=== PATIENT | female | born 1980 | race Caucasian/White ===

== ENCOUNTER 2017-02-25 14:00 | Observation (INO) | payer MEDICAID, SELFPAY ==
[2017-02-25 14:29] VITALS: BMI 22.4
[2017-02-25 14:32] VITALS: BMI 22.5
[2017-02-25 14:39] VITALS: BP 131/87; PULSE 79; RESP 18; TEMP 36.9; O2SAT 100
--- NOTE | 2017-02-25 14:52 | PCM.HP.STD ---
Problem List (1) Opiate withdrawal Status: Acute History of Present Illness Date of Admission: 02/25/17 Chief Complaint: opiate withdrawal The patient is a 36 year old F presents to seek opiate withdrawal. Patient has been injecting IV heroin for about 4 years now. Patient's last use was at 1600 yesterday. Since then, patient has been having abdominal cramps, restless legs, rhinitis, nausea. [] Past Medical History Allergies Latex, Natural Rubber Allergy (Verified 02/25/17 14:37) Shortness of breath Sulfa (Sulfonamide Antibiotics) Allergy (Verified 02/25/17 14:37) Shortness of breath Smoking Status: Heavy Smoker (>10/day) Tobacco Use: Cigarettes Alcohol: None Drugs: Heroin - *Family History Paternal History Items: Diabetes, Heart Disease Review of Systems Constitutional: Reports: Chills. Denies: Fever, Weight Change Eyes: Reports: Blurred vision. Denies: Double vision HEENT: Denies: Head Aches, Sinus Congestion, Sinus Drainage Cardiovascular: Denies: Chest Pain, Palpitations Respiratory: Denies: Cough, Shortness of breath at rest, Sputum production Gastrointestinal: Denies: Abdominal Pain, Nausea, Vomiting Genitourinary: Denies: Dysuria Musculoskeletal: Denies: Joint Pain, Joint Tenderness Skin: Reports: Rash - Chronic rash on the dorsum of the feet bilaterally. It is pruritic. Patient has received medication for it which helps temporarily but just has intense pruritus associated with it. No rash elsewhere that she is aware of.. Denies: Wounds Neurological: Denies: Numbness, Tingling, Focal weakness Hematologic/ Lymphatic: Denies: Easy Bruising, Easy Bleeding, Hx of blood clot VTE Information - Inpt Only VTE Present on Admission: No Patient Problems: Active and Suspected Problems Opiate withdrawal (Acute) - Physical Exam General: Alert, Cooperative, No apparent distress HEENT: Atraumatic, Normocephalic, - - No scleral icterus Neck: No Nodes, Thyroid Normal Size and Texture Lungs: Clear to auscultation, Normal air movement, No rhonchi, No wheeze Cardiovascular: Regular rate, Regular Rhythm, Normal S1, Normal S2, No murmurs Abdomen: Bowel Sounds Present, Soft, Non Tender, Non-Distended, No Hepato-splenomegaly Extremities: No clubbing, No cyanosis, No edema, No Calf Tenderness Skin: - - Excoriations on the dorsum of her feet bilaterally. This appears to have a plaque on the medial ankle on her right. No other plaques noted elsewhere. Musculoskeletal: No Tenderness to Palpation of Joints or Extremities, No Muscle Wasting Psych/Mental Status: Normal Affect, Appropriate Vital Signs Temp Pulse Resp BP Pulse Ox 36.9 C 79 18 131/87 100 02/25/17 14:39 02/25/17 14:39 02/25/17 14:39 02/25/17 14:39 02/25/17 14:39 Oxygen Delivery Method Room Air Weight: 61.235 kg Body Mass Index (BMI) 22.4 Assessment/Plan Active and Suspected Problems Opiate withdrawal (Acute) 1. Acute heroin withdrawal Patient will be on the medical stabilization protocol for opiates. Patient also have other medications to help with other somatic complaints. Patient states she does share needles and reuses needles though she uses bleach to clean those out. Will check the patient for HIV and hep C antibodies. 2. Rash: Relatively localized on her feet bilaterally. I am frankly unsure what it is and could be psoriasis though she does not have lesions elsewhere. Other possibilities could be porphyria but suspected that be more localized in the hands and patient states that she has no issues with the son making worse but states it does get worse when she is in the grass.
--- NOTE | 2017-02-25 14:57 | HP.PCM_ITS ---
Problem List (1) Opiate withdrawal Status: Acute History of Present Illness Date of Admission: 02/25/17 Chief Complaint: opiate withdrawal The patient is a 36 year old F presents to seek opiate withdrawal. Patient has been injecting IV heroin for about 4 years now. Patient's last use was at 1600 yesterday. Since then, patient has been having abdominal cramps, restless legs , rhinitis, nausea. [] Past Medical History Allergies Latex, Natural Rubber Allergy (Verified 02/25/17 14:37) Shortness of breath Sulfa (Sulfonamide Antibiotics) Allergy (Verified 02/25/17 14:37) Shortness of breath Smoking Status: Heavy Smoker (>10/day) Tobacco Use: Cigarettes Alcohol: None Drugs: Heroin - *Family History Paternal History Items: Diabetes, Heart Disease Review of Systems Constitutional: Reports: Chills. Denies: Fever, Weight Change Eyes: Reports: Blurred vision. Denies: Double vision HEENT: Denies: Head Aches, Sinus Congestion, Sinus Drainage Cardiovascular: Denies: Chest Pain, Palpitations Respiratory: Denies: Cough, Shortness of breath at rest, Sputum production Gastrointestinal: Denies: Abdominal Pain, Nausea, Vomiting Genitourinary: Denies: Dysuria Musculoskeletal: Denies: Joint Pain, Joint Tenderness Skin: Reports: Rash - Chronic rash on the dorsum of the feet bilaterally. It is pruritic. Patient has received medication for it which helps temporarily but just has intense pruritus associated with it. No rash elsewhere that she is aware of.. Denies: Wounds Neurological: Denies: Numbness, Tingling, Focal weakness Hematologic/ Lymphatic: Denies: Easy Bruising, Easy Bleeding, Hx of blood clot VTE Information - Inpt Only VTE Present on Admission: No Patient Problems: Active and Suspected Problems Opiate withdrawal (Acute) - Physical Exam General: Alert, Cooperative, No apparent distress HEENT: Atraumatic, Normocephalic, - - No scleral icterus Neck: No Nodes, Thyroid Normal Size and Texture Lungs: Clear to auscultation, Normal air movement, No rhonchi, No wheeze Cardiovascular: Regular rate, Regular Rhythm, Normal S1, Normal S2, No murmurs Abdomen: Bowel Sounds Present, Soft, Non Tender, Non-Distended, No Hepato- splenomegaly Extremities: No clubbing, No cyanosis, No edema, No Calf Tenderness Skin: - - Excoriations on the dorsum of her feet bilaterally. This appears to have a plaque on the medial ankle on her right. No other plaques noted elsewhere. Musculoskeletal: No Tenderness to Palpation of Joints or Extremities, No Muscle Wasting Psych/Mental Status: Normal Affect, Appropriate Vital Signs Temp Pulse Resp BP Pulse Ox 36.9 C 79 18 131/87 100 02/25/17 14:39 02/25/17 14:39 02/25/17 14:39 02/25/17 14:39 02/25/17 14:39 Oxygen Delivery Method Room Air Weight: 61.235 kg Body Mass Index (BMI) 22.4 Assessment/Plan Active and Suspected Problems Opiate withdrawal (Acute) 1. Acute heroin withdrawal * Patient will be on the medical stabilization protocol for opiates. Patient also have other medications to help with other somatic complaints. * Patient states she does share needles and reuses needles though she uses bleach to clean those out. * Will check the patient for HIV and hep C antibodies. 2. Rash: * Relatively localized on her feet bilaterally. I am frankly unsure what it is and could be psoriasis though she does not have lesions elsewhere. * Other possibilities could be porphyria but suspected that be more localized in the hands and patient states that she has no issues with the son making worse but states it does get worse when she is in the grass.
[2017-02-25] MEDS: cloNIDine HCl 0.1 MG Tablet 0.2 MG PO (15:24)
[2017-02-25] MEDS: Buprenorphine HCl 2 MG TAB.SUBL SL ×2 (15:25→22:57)
[2017-02-25 15:26] LABS: Absolute Lymphocyte Count 3.06 X10^3/ul (0.83-4.51); Absolute Neutrophil Count 6.2 X10^3/uL (2.0-7.7); Basophil# 0.07 X10^3/uL; Basophil% 0.7 % (0-1); Eosinophil# 0.11 X10^3/uL; Eosinophils% 1.1 % (0-5); Hematocrit 39.8 % (37-47); Hemoglobin 13.5 g/dl (12.0-15.0); Lymphocyte # 3.06 X10^3/ul (4.0); Lymphocyte % 31.3 % (19-41); Mean Corp Hgb Conc 33.9 g/gl (32-36); Mean Corpuscular Hgb 30.1 pg (27.0-32.0); Mean Corpuscular Volume 88.8 fL (81-99); Mean Platelet Vol. 12.1 fl (6.2-12.0); Monocyte# 0.37 X10^3/uL; Monocyte% 3.8 % (0-10); Neutrophil # 6.15 X10^3/uL (2.7-7.7); Neutrophil % 62.9 % (47-70); Platelet Count 261 K/mm3 (150-450); RBC Distribution Width CV 14.5 % (11.6-14.6); Red Blood Count 4.48 M/mm3 (4.2-5.4); White Blood Count 9.8 K/mm3 (4.4-11.0)
[2017-02-25 15:30] LABS: Differential Indicated SCAN CRITERIA MET; POSITIVE COUNT NO; POSITIVE DIFFERENTIAL NO; POSITIVE MORPHOLOGY YES
[2017-02-25 15:39] LABS: ALB/GLOB Ratio 0.9 RATIO (0.9-2.4); AST(SGOT) 9 U/L (15-37); Alanine Aminotransfer ALT/SGPT 16 U/L (12-78); Albumin, Serum 3.6 g/dL (3.4-5.0); Alkaline Phosphatase 81 U/L (45-117); Anion Gap 9 (5-15); BUN 7 mg/dL (7-18); BUN/Creat Ratio 8.9 RATIO (10-20); Chloride 106 mmol/L (98-107); Creatinine, Serum 0.79 mg/dL (0.55-1.02); EST Glomerular Filtration Rate 88 mL/min (>60); Est Glom Filt Rate - Afr Amer 106 mL/min (>60); Estimated Creatinine Clearance 88.59 ml/min; Globulin 4.1 g/dL (2.3-3.5); Glucose 89 mg/dL (70-110); Potassium 3.6 mmol/L (3.5-5.1); Protein, Total 7.7 g/dL (6.4-8.2); Sodium Level 140 mmol/L (136-145)
[2017-02-25 15:48] LABS: Pregnancy, Serum, hCG Quali. NEGATIVE Negative (0-9 Nonpreg)
[2017-02-25 16:19] LABS: Platelet Estimate ADEQUATE (ADEQ); Red Cell Morphology NORM C+C NORMAL (NORM C&C)
[2017-02-25] MEDS: 0.9% Normal Saline 1,000 ML 125 ML IV (16:24)
[2017-02-25 18:39] VITALS: BP 94/55; PULSE 71; RESP 18; TEMP 37.1; O2SAT 98
[2017-02-25] MEDS: Carbidopa/Levodopa 25/100 Tablet PO (18:46)
[2017-02-25] MEDS: Methocarbamol 750 MG Tablet PO (18:46)
[2017-02-25 21:22] VITALS: BP 110/73; PULSE 58; RESP 14; TEMP 36.4
[2017-02-25] MEDS: Ibuprofen 400 MG Tablet 800 MG PO (21:29)
[2017-02-25] MEDS: traZODone 50 MG Tablet PO (22:57)
[2017-02-25 23:46] LABS: Vista UDS pH Range 6
[2017-02-26 00:01] LABS: Amphetamine Urine VISTA NEGATIVE (<1000 ng/mL); Barbiturate Urine VISTA NEGATIVE (< 200 ng/mL); Benzodiazepine Urine VISTA NEGATIVE (< 200 ng/mL); Cocaine Urine VISTA NEGATIVE (< 300 ng/mL); Ecstacy Urine VISTA NEGATIVE (< 500 ng/mL); Methadone Urine VISTA NEGATIVE (< 300 ng/mL); PCP Urine VISTA NEGATIVE (< 25 ng/mL); THC Urine VISTA NEGATIVE (< 50 ng/mL)
[2017-02-26 00:39] VITALS: BP 108/74; PULSE 61; RESP 16; TEMP 36.4
[2017-02-26] MEDS: Methocarbamol 750 MG Tablet PO ×3 (00:42→22:31)
[2017-02-26 05:17] VITALS: BP 104/72; PULSE 60; RESP 14; TEMP 36.4
[2017-02-26] MEDS: Dicyclomine 10 MG Capsule 20 MG PO (05:21)
[2017-02-26] MEDS: Ibuprofen 400 MG Tablet 800 MG PO (05:21)
[2017-02-26] MEDS: Buprenorphine HCl 2 MG TAB.SUBL SL ×3 (06:34→22:30)
[2017-02-26 10:00] VITALS: BP 114/68; PULSE 60; RESP 16; TEMP 36.9
[2017-02-26] MEDS: Multivitamins,Ther W-Minerals Tablet 1 TABLET PO (10:52)
[2017-02-26] MEDS: Carbidopa/Levodopa 25/100 Tablet PO ×2 (11:09→22:31)
[2017-02-26 14:00] VITALS: BP 117/75; PULSE 63; RESP 16; TEMP 36.5; O2SAT 98
--- NOTE | 2017-02-26 16:03 | CHAPLAIN ---
introduction of self and purpose in hospital to patient; pt says that she is really tired and would like me to stop back another time
--- NOTE | 2017-02-26 18:52 | PCM.PROGNOTE ---
Patient Problems: Active and Suspected Problems Opiate withdrawal (Acute) Subjective: Patient seen and examined today, she states she is not having severe withdrawal symptoms at this time. Patient has rash areas on her lower legs and feet which she says has been present for over a year, these areas look to this examiner to be a nonspecific dermatitis. She says the areas itch. I have written for triamcinolone cream for these areas - Physical Exam General: Alert, Oriented x3, Cooperative, No apparent distress, Well developed, Well nourished HEENT: Atraumatic, PERRLA, EOMI, Normocephalic Oral: Moist Mucosa Neck: Supple, No JVD, Negative Carotid Bruits, No Nuchal Rigidity, Trachea Midline, Thyroid Normal Size and Texture Lungs: Clear to auscultation, Normal air movement, No rhonchi, No wheeze, No rales Cardiovascular: Regular rate, Regular Rhythm, Normal S1, Normal S2, No murmurs, No Ectopic Activity, PMI Normal, No rub noted, No Gallop Abdomen: Bowel Sounds Present, Soft, Non Tender, Non-Distended Extremities: No clubbing, No cyanosis, No edema, Capillary Refill Less than 3 Seconds Skin: - - Patient has some scattered superficial reddened skin areas over her lower legs and feet, there is evidence of scratching in the areas, there is no purulent discharge noted. Musculoskeletal: No Tenderness to Palpation of Joints or Extremities Neurological: Cranial nerves II-XII grossly intact, Neuro grossly intact, Sensory exam intact to light touch and pain, Coordination normal Psych/Mental Status: Normal Affect, Appropriate, Alert and oriented to time, place, person, mood and affect Vital Signs Temp Pulse Resp BP Pulse Ox 97.7 F 63 16 117/75 98 02/26/17 14:00 02/26/17 14:00 02/26/17 14:00 02/26/17 14:00 02/26/17 14:00 Oxygen Delivery Method Room Air Weight: 61.235 kg Body Mass Index (BMI) 22.4 Intake and Output for Last 24 Hours 02/24/17 02/25/17 02/26/17 23:59 23:59 23:59 Intake Total 780 1555 Output Total 3 Balance 777 1555 Laboratory Tests Past 24 Hrs 02/25/17 23:21 Urine Opiates Screen NEGATIVE Urine Methadone Screen NEGATIVE Ur Barbiturates Screen NEGATIVE Ur Phencyclidine Scrn NEGATIVE Ur Amphetamines Screen NEGATIVE U Methamphetamin-MDMA NEGATIVE U Benzodiazepines Scrn NEGATIVE Urine Cocaine Screen NEGATIVE U Cannabinoids Screen NEGATIVE Ur Drug Screen Comment Assessment/Plan Active and Suspected Problems Opiate withdrawal (Acute) #1 acute opioid withdrawal-continue medications per medical stabilization protocol #2 atopic dermatitis of the lower legs and feet-patient will be placed on triamcinolone cream twice a day
[2017-02-26 22:24] VITALS: BP 109/75; PULSE 61; RESP 16; TEMP 36.7
[2017-02-26] MEDS: Triamcinolone 0.5% Cream 1 APPLIC TOPICAL (22:30)
[2017-02-26] MEDS: traZODone 50 MG Tablet PO (22:30)
[2017-02-26] MEDS: cloNIDine HCl 0.1 MG Tablet PO (22:30)
[2017-02-27 07:04] VITALS: BP 101/67; PULSE 57; RESP 16; TEMP 36.6
[2017-02-27] MEDS: Buprenorphine HCl 2 MG TAB.SUBL SL ×2 (07:05→18:26)
[2017-02-27 10:00] VITALS: BP 104/63; PULSE 61; RESP 16; TEMP 36.6
[2017-02-27 10:45] LABS: Hep C Antibodies >11.0 s/co ratio (0.0-0.9)
[2017-02-27] MEDS: Triamcinolone 0.5% Cream 1 APPLIC TOPICAL ×2 (10:56→22:30)
[2017-02-27] MEDS: Multivitamins,Ther W-Minerals Tablet 1 TABLET PO (10:56)
[2017-02-27 11:00] VITALS: BP 104/63; PULSE 61; RESP 18; TEMP 36.6; O2SAT 97
[2017-02-27] MEDS: Methocarbamol 750 MG Tablet PO ×3 (11:08→22:25)
[2017-02-27] MEDS: cloNIDine HCl 0.1 MG Tablet PO ×3 (11:09→22:24)
--- NOTE | 2017-02-27 13:03 | PCM.PROGNOTE ---
Patient Problems: Active and Suspected Problems Opiate withdrawal (Acute) Subjective: Patient was seen and examined today, she is doing well and has minimal withdrawal symptoms. - Physical Exam General: Alert, Oriented x3, Cooperative, No apparent distress, Well developed, Well nourished HEENT: Atraumatic, PERRLA, EOMI, Normocephalic Oral: Moist Mucosa Neck: Supple, No Nuchal Rigidity, Trachea Midline, Thyroid Normal Size and Texture Lungs: Clear to auscultation, Normal air movement, No rhonchi, No wheeze, No rales Cardiovascular: Regular rate, Regular Rhythm, Normal S1, Normal S2, No murmurs, No Ectopic Activity, PMI Normal, No rub noted, No Gallop Abdomen: Bowel Sounds Present, Soft, Non Tender, Non-Distended, No hernias noted Extremities: No clubbing, No cyanosis, No edema, Capillary Refill Less than 3 Seconds Musculoskeletal: No Tenderness to Palpation of Joints or Extremities Neurological: Cranial nerves II-XII grossly intact, Neuro grossly intact, Sensory exam intact to light touch and pain, Coordination normal Psych/Mental Status: Normal Affect, Appropriate, Alert and oriented to time, place, person, mood and affect Vital Signs Temp Pulse Resp BP Pulse Ox 97.9 F 61 18 104/63 97 02/27/17 11:00 02/27/17 11:00 02/27/17 11:00 02/27/17 11:00 02/27/17 11:00 Oxygen Delivery Method Room Air Weight: 61.235 kg Body Mass Index (BMI) 22.4 Intake and Output for Last 24 Hours 02/25/17 02/26/17 02/27/17 23:59 23:59 23:59 Intake Total 780 1555 Output Total 3 Balance 777 1555 Laboratory Tests Past 24 Hrs 02/25/17 15:03 Hepatitis C Ab (EIA) >11.0 H Hepatitis C Comment Not Reportable Assessment/Plan Active and Suspected Problems Opiate withdrawal (Acute) #1 acute opioid withdrawal-continue medications per medical stabilization protocol #2 atopic dermatitis of the lower legs and feet-continue triamcinolone cream
--- NOTE | 2017-02-27 15:54 | CHAPLAIN ---
parent is on phone with a personal call; offer to come back another time and pt agrees
[2017-02-27] MEDS: Carbidopa/Levodopa 25/100 Tablet PO (16:51)
[2017-02-27 17:32] VITALS: BP 110/66; PULSE 62; RESP 18; TEMP 36.6
[2017-02-27] MEDS: traZODone 50 MG Tablet PO (22:24)
[2017-02-27 22:32] VITALS: BP 115/72; PULSE 56; RESP 16; TEMP 36.6
[2017-02-28 06:07] VITALS: BP 106/67; PULSE 52; RESP 16; TEMP 36.3
[2017-02-28] MEDS: Buprenorphine HCl 2 MG TAB.SUBL SL (06:07)
--- NOTE | 2017-02-28 09:23 | PCM.DC ---
- Discharge Diagnoses Current Active Problems: Current Active and Chronic Problems Opiate withdrawal (Acute) You will use the following diet at home:: No restrictions Your food should be the consistency of: Regular Your liquids should be the consistency of: Regular/Thin Discharge Activity: Return to Normal Activity Allergies/Adverse Reactions: Allergies Latex, Natural Rubber Allergy (Verified 02/25/17 14:37) Shortness of breath Sulfa (Sulfonamide Antibiotics) Allergy (Verified 02/25/17 14:37) Shortness of breath Medications to take at Discharge Nicotine [Nicoderm Cq] 21 mg TRANSDERM. DAILY #30 patch 02/28/17 Triamcinolone 0.5% Cream [Kenalog] 1 applic TOPICAL BID #15 gm 02/28/17 The following prescriptions were given: Nicotine [Nicoderm Cq] 21 mg TRANSDERM. DAILY #30 patch Triamcinolone 0.5% Cream [Kenalog] 1 applic TOPICAL BID #15 gm Primary Care Physician: Care Physician,No Primary [Primary Care Provider] - Please follow up with your Primary Care Physician in: in 2-3 weeks
[2017-02-28 09:27] VITALS: BP 96/57; PULSE 68; RESP 16; TEMP 36.6
[2017-02-28] MEDS: Methocarbamol 750 MG Tablet PO (09:45)
[2017-02-28] MEDS: Multivitamins,Ther W-Minerals Tablet 1 TABLET PO (09:45)
[2017-02-28] MEDS: Triamcinolone 0.5% Cream 1 APPLIC TOPICAL (09:46)
--- NOTE | 2017-02-28 19:25 | PCM.DC.SUM ---
Discharge Date and Diagnosis Date of Admission: 02/25/17 Date of Discharge: 02/28/17 - Primary Discharge Diagnosis #1 Acute opioid withdrawal #2 atopic dermatitis of the lower legs and feet Hospital Course and Treatment Operations: None Procedures: None Summary of Care Provided: The patient is a 36 year old F who was directly admitted to medical surgical floor #2 for direct admission into the medical stabilization program for opiate withdrawal. Patient was symptomatic going through opiate withdrawal, she was admitted to the floor and medical stabilization template medication administration was used. Patient also had some areas on examination that were excoriated over her lower legs and feet and were pruritic, these were felt to be atopic dermatitis areas, she has had these areas for quite some time. She was placed on triamcinolone cream for this. Patient did well during her hospital course and her symptoms lessened and finally resolved. On 02/28/17, patient was seen and examined felt to be in stable condition for discharge home Discharge Activity: Return to Normal Activity Home Medications: Medications to take at Discharge Nicotine [Nicoderm Cq] 21 mg TRANSDERM. DAILY #30 patch 02/28/17 Triamcinolone 0.5% Cream [Kenalog] 1 applic TOPICAL BID #15 gm 02/28/17 Following Prescrptions Were Given to Patient: Nicotine [Nicoderm Cq] 21 mg TRANSDERM. DAILY #30 patch Triamcinolone 0.5% Cream [Kenalog] 1 applic TOPICAL BID #15 gm Primary Care Physician: Care Physician,No Primary [Primary Care Provider] - Please follow up with your Primary Care Physician in: in 2-3 weeks Disposition: Home Minutes spent on discharge:: 32 Patient Condition:: Stable Meaningful Use Info Meaningful Use Diagnoses (Choose all that apply): None applicable
== END 2017-02-28 10:55 | disposition home or self-care (01) | DRG 773 ==
LOC: MS2 07-26 15:20
PROVIDERS: Visit Provider Internal Medicine
DX: F11.23 Opioid dependence with withdrawal (principal); F17.210 Nicotine dependence, cigarettes, uncomplicated; L20.9 Atopic dermatitis, unspecified
CPT/HCPCS: 80053; 80307; 84703; 85025; 86803; 99218; J7030; G0378; G0379